=== PATIENT | female | born 1960 | race Caucasian/White ===

== ENCOUNTER → 2019-10-21 | Outpatient (CLI) | payer OTHER ==
--- NOTE | 2019-10-21 14:32 | MR ---
EXAMINATION TYPE: MR brain wo/w con DATE OF EXAM: 10/21/2019 COMPARISON: NONE HISTORY: Lung ca, evaluate for metastatic disease. Staging study. TECHNIQUE: Multiplanar, multisequence images of the brain and brainstem is performed without and with IV contras t, utilizing 5.5 mL intravenous Gadavist . FINDINGS: Diffusion weighted images demonstrate no evidence of a recent infarct or other diffusion ab normality. There is no worrisome extra-axial fluid collection. The ventricular system and cisternal spaces are normal in size and appearance. The brain volume is age appropriate. Symmetric prominence of right plexus near axial image 16. Scattered foci of T2 hyperintensity are seen throughout the whi te matter bilaterally. Approximately 20 scattered lesions are seen. Lesion is nonspecific in appearan ce and distribution. Midline structures demonstrate normal morphology. The craniocervical junction appears within normal limits. Post contrast images demonstrate no abnormal enhancement. The dural venous sinuses appear pa tent. The globes are intact bilaterally. Some patchy fluid signal inferior posterior left mastoid air cells. Correlate clinically. Some mucosal thickening right posterior ethmoid and posterior sphenoid sinus along with mild mucosal thickening bilateral frontal sinuses. IMPRESSION: No suspicious enhancing intraparenchymal masses or enhancement to suggest metastatic dise ase to the brain. Background mild to moderate diffuse cerebral atrophy and mild chronic paranasal sin us disease noted.
== END | disposition home or self-care (01) ==
LOC: RADMRIMAIN 13:32
DX: G31.1 Senile degeneration of brain, not elsewhere classified (principal)
CPT/HCPCS: 70553; A9585